=== PATIENT | female | born 1965 | race Caucasian/White ===

== ENCOUNTER 2024-09-20 10:33 | Outpatient (CLI) | payer BC ==
[2024-09-20 11:18] LABS: Estimated GFR - POC 75.0
== END 2024-09-20 10:34 ==
LOC: SCSMRI 10:33
DX: H05.20 Unspecified exophthalmos (principal); G93.9 Disorder of brain, unspecified; H44.89 Other disorders of globe; Z96.1 Presence of intraocular lens
CPT/HCPCS: 36415; 70543; 76376; 82565